=== PATIENT | male | born 1990 | race Caucasian/White ===

== ENCOUNTER 2019-02-26 11:58 | Emergency (ER) | payer OTHER ==
[~2019-02-26] VITALS: Ht 182.9 cm; Wt 88.9 kg
[2019-02-26 12:07] VITALS: BP 138/88
--- NOTE | 2019-02-26 12:15 | NUR ---
PT REFUSED TO ANSWER CLINICAL SCREEN QUESTIONS. PT STATES "THE QUESTIONS HAVE NOTHING TO DO WITH WHY I AM HERE"
[2019-02-26] MEDS ORDERED: HYDROcodone/APAP 5/325 TABLET PO ONE (12:30)
[2019-02-26] MEDS ORDERED: HYDROcodone/APAP 5/325 TABLET ONE (12:30)
--- NOTE | 2019-02-26 13:38 | NUR ---
DPatient/Caregiver given discharge instructions and they have confirmed that they understand the instructions. Patient ambulatory with steady gait.
== END 2019-02-26 13:42 | disposition home or self-care (01) ==
LOC: ED 13:39
DX: S62.346A Nondisplaced fracture of base of fifth metacarpal bone, right hand, initial encounter for closed fracture (principal); S62.034A Nondisplaced fracture of proximal third of navicular [scaphoid] bone of right wrist, initial encounter for closed fracture; X58.XXXA Exposure to other specified factors, initial encounter; Y93.89 Activity, other specified; Y92.410 Unspecified street and highway as the place of occurrence of the external cause; Y99.8 Other external cause status
CPT/HCPCS: 29125; 99283